=== PATIENT | male | born 1985 | race Two or more races ===

== ENCOUNTER 2017-03-17 17:23 | Observation (INO) | payer OTHER ==
[~2017-03-17] VITALS: Ht 167.6 cm; Wt 64.8 kg
[2017-03-17] MEDS ORDERED: PLEASE ENTER ALLERGIES MC SCH (18:00)
[2017-03-17] MEDS ORDERED: PLEASE ENTER HEIGHT AND WEIGHT MC SCH (18:00)
[2017-03-17] MEDS ORDERED: ASPIRIN 81 MG TABLET CHEW PO ONE (18:00)
[2017-03-17 18:10] LABS: BASOPHILS # (AUTO) 0.04 x10^3/uL (0-0.1); BASOPHILS % (AUTO) 1 % (0-1); EOSINOPHILS # (AUTO) 0.18 x10^3/uL (0-0.4); EOSINOPHILS % (AUTO) 3 % (1-7); LYMPHOCYTES # (AUTO) 1.64 x10^3/uL (1-3.4); LYMPHOCYTES % (AUTO) 22 % (22-44); MD NO; MEAN CORPUSCULAR HEMOGLOBIN 29.4 pg (27.5-34.5); MEAN CORPUSCULAR HGB CONC 33.3 g/dL (33.2-36.2); MEAN CORPUSCULAR VOLUME 88.1 fL (81-97); MEAN PLATELET VOLUME 9.4 fL (7.4-10.4); MONOCYTES # (AUTO) 0.47 x10^3/uL (0.2-0.8); MONOCYTES % (AUTO) 6 % (2-9); NEUTROPHILS # (AUTO) 5.07 x10^3/uL (1.8-6.8); NEUTROPHILS % (AUTO) 69 % (42-75); PLATELET COUNT 309 x10^3/uL (130-400); RED BLOOD COUNT 5.33 x10^6/uL (4.38-5.82); RED CELL DISTRIBUTION WIDTH 13.1 % (9.4-14.8)
[2017-03-17 18:22] LABS: ANION GAP 8 mmol/L (5-15); CHLORIDE 107 mmol/L (98-107)
[2017-03-17 18:29] LABS: CREATININE 1.13 mg/dL (0.7-1.3); TROPONIN I < 0.015 ng/mL (0.000-0.045)
[2017-03-17 18:37] LABS: D-DIMER < 0.19 ug/mlFEU (0.00-0.52); INTERNATIONAL NORMALIZED RATIO 1.03 (0.93-1.1); PARTIAL THROMBOPLASTIN TIME 27 Seconds (25-31); PROTHROMBIN TIME 10.6 Seconds (9.6-11.5)
[2017-03-17] MEDS ORDERED: hydrALAzine 20 MG/ML, 1ML IVPush PRN (20:00)
[2017-03-17] MEDS ORDERED: SODIUM CHLORIDE FLUSH 10ML SYR IVF PRN (20:00)
[2017-03-17] MEDS ORDERED: ACETAMINOPHEN 325 MG TABLET PO PRN (20:00)
[2017-03-17] MEDS ORDERED: LORazepam 1MG TABLET PO PRN (20:00)
[2017-03-17] MEDS ORDERED: ENALAPRILAT 1.25 MG/ML, 2ML IVPush PRN (20:00)
[2017-03-17] MEDS ORDERED: NITROGLYCERIN 0.4 MG/SPRAY SL PRN (20:00)
[2017-03-17] MEDS ORDERED: ZOLPIDEM 5MG TABLET PO PRN (20:00)
[2017-03-17] MEDS ORDERED: AMLO10TA4 PO (20:17)
[2017-03-17 20:32] LABS: CHOLESTEROL, TOTAL 158 mg/dL (140-239); TRIGLYCERIDES 492 mg/dL (50-200)
[2017-03-17 20:40] LABS: CHOL/HDL RATIO 7.5; HDL CHOL % 13 % (26-37); HDL CHOLESTEROL (DIRECT) 21 mg/dL (40-60)
[2017-03-17 20:55] VITALS: BP 119/80
[2017-03-17] MEDS: SODIUM CHLORIDE FLUSH 10ML SYR IVF SCH (23:43)
[2017-03-18 00:37] LABS: TROPONIN I < 0.015 ng/mL (0.000-0.045)
[2017-03-18 03:53] VITALS: BP 111/74
[2017-03-18] MEDS ORDERED: ASPIRIN 325 MG TABLET EC PO SCH (06:00)
[2017-03-18 06:17] LABS: TROPONIN I < 0.015 ng/mL (0.000-0.045)
[2017-03-18] MEDS: SODIUM CHLORIDE FLUSH 10ML SYR IVF SCH (08:20)
[2017-03-18 09:07] VITALS: BP 112/74
[2017-03-18 17:41] VITALS: BP 111/74
== END 2017-03-18 18:55 | disposition home or self-care (01) ==
LOC: ED 20:38 → EDIP 20:55 → 5SO 20:56
PROVIDERS: ADMIT Family Medicine; ATTEND Family Medicine
DX: R07.89 Other chest pain (principal); I10 Essential (primary) hypertension; E78.5 Hyperlipidemia, unspecified; F17.200 Nicotine dependence, unspecified, uncomplicated
CPT/HCPCS: 36415; 71045; 80048; 80061; 82040; 84443; 84484; 85025; 85379; 85610; 85730; 93005; 93017; 99285; G0378